=== PATIENT | female | born 2000 | race Caucasian/White ===

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

== ENCOUNTER 2022-07-03 14:25 | Emergency (ER) | payer BC, SELFPAY ==
[2022-07-03 14:45] VITALS: BP 123/73; PULSE 66; RESP 16; TEMP 36.3; O2SAT 99
[2022-07-03 14:47] VITALS: BP 123/73; PULSE 66; RESP 16; TEMP 36.3; O2SAT 99
--- NOTE | 2022-07-03 15:39 | ED.SKABFB ---
HPI - Skin/Abscess/Foreign Bdy General Chief complaint: Skin/Abscess/Foreign Body Stated complaint: lt foot/ glass injury Time Seen by Provider: 07/03/22 15:34 Source: patient Mode of arrival: ambulatory Limitations: no limitations History of Present Illness HPI narrative: Patient presents today complaining of a piece of glass in the bottom of her left foot. States she stepped on a globe of a string light yesterday. She feels a sharp pain when she walks. She is up-to-date on her tetanus vaccine. Related Data Home Medications Medication Instructions Recorded Confirmed dexmethylphenidate 20 mg 20 mg PO DAILY 07/03/22 07/03/22 capsule,extended release [id number] sertraline 100 mg tablet 100 mg PO DAILY 07/03/22 07/03/22 Allergies Allergy/AdvReac Type Severity Reaction Status Date / Time amoxicillin Allergy Mild Unknown Verified 07/03/22 14:46 clavulanic acid Allergy Mild Unknown Verified 07/03/22 14:46 sulfamethoxazole Allergy Unknown Unknown Verified 07/03/22 14:46 trimethoprim Allergy Unknown Unknown Verified 07/03/22 14:46 Review of Systems Review of Systems: CONSTITUTIONAL: Denies body aches, fever, chills, or sweats. EYES: Denies visual changes, redness, or discharge. ENT: Denies rhinorrhea, congestion, sore throat, or otalgia. CARDIOVASCULAR: Denies chest pain, palpitations, or edema. RESPIRATORY: Denies cough or dyspnea. GASTROINTESTINAL: Denies abdominal pain, nausea, vomiting, or diarrhea. GENITOURINARY: Denies dysuria or hematuria. SKIN: Denies rash, itching, or wounds.+ foreign body to left foot MUSCULOSKELETAL: Denies back pain, joint pain, or myalgia. NEUROLOGIC: Denies headache, numbness, tingling, or weakness. PSYCH: Denies depression or anxiety. PMFSH Comments At time of signature, I have reviewed and agree with nursing past medical, surgical, social and family history unless otherwise noted. Please see nursing chart for further information. There is no relevant family history pertinent to the presenting complaint Exam Narrative: GENERAL: Well-appearing, well-nourished, and in no acute distress. HEAD: Normocephalic, atraumatic. EYES: EOMI. No redness or drainage. Conjunctivae normal. ENT: Mucous membranes pink and moist. NECK: Normal AROM. CHEST: No respiratory distress. EXTREMITIES: Normal range of motion. No edema. SKIN: Warm, dry, no rash. Capillary refill normal. Normal skin turgor. Small foreign body palpated under the skin in the plantar aspect the lateral left foot. No surrounding erythema, edema, ecchymosis. No red streaking noted. NEURO: No focal deficits. Alert and oriented x3. Gait steady. PSYCH: Normal affect. No signs of depression or anxiety. Course Course Level of Care: Express Care Visit Vital Signs Vital signs: Vital Signs Temperature 97.3 F L 07/03/22 14:45 Pulse Rate 66 07/03/22 14:45 Respiratory Rate 16 07/03/22 14:45 Blood Pressure 123/73 07/03/22 14:45 Pulse Oximetry 99 07/03/22 14:45 Temperature 97.3 F L 07/03/22 14:47 Pulse Rate 66 07/03/22 14:47 Respiratory Rate 16 07/03/22 14:47 Blood Pressure 123/73 07/03/22 14:47 Pulse Oximetry 99 07/03/22 14:47 Reviewed. Pt has been instructed to follow up with her PCP regarding her elevated blood pressure today. Procedures Foreign Body Removal Foreign Body #1: Foreign Body Removal Date: 07/03/22 Foreign Body Removal Time: 16:07 Time Out Performed: no Site: left and foot Description of foreign body: other (Glass) Sedation/Analgesia: none Technique: removal with forceps Confirmed by:: direct visualization Complications: none Post-procedure exam: awake, alert Neurovascular: no change from pre-procedure Foreign Body Removal Narrative: Band-Aid applied. Patient tolerated procedure well. MDM - Skin/Abscess/Foreign Bdy MDM Narrative Medical decision making narrative: Soaking foot in peroxid
== END 2022-07-03 16:14 | disposition home or self-care (01) ==
PROVIDERS: Emergency Provider Nurse Practitioner; PCP Pediatrics
DX: S90.852A Superficial foreign body, left foot, initial encounter (principal); W25.XXXA Contact with sharp glass, initial encounter; F41.9 Anxiety disorder, unspecified; F90.9 Attention-deficit hyperactivity disorder, unspecified type
CPT/HCPCS: 99213; A9270; G0463

== ENCOUNTER 2023-01-06 17:14 | Emergency (ER) | payer BC, SELFPAY ==
--- NOTE | ~2023-01-06 | XR_ITS ---
EXAM: XR foot RT min 3V DATE: 01/06/2023 17:38 HISTORY: Pain great toe,tripped and jammed it into door . COMPARISON: None available. FINDINGS: Normal mineralization. Nondisplaced oblique fracture at the proximal and medial aspect of the right first phalanx. No lytic or blastic lesion. Joint spaces are maintained. No erosion or perio steal change. Soft tissues within normal limits. IMPRESSION: Nondisplaced oblique fracture of the proximal and medial aspect of the right first phalan x. Reviewed, dictated and finalized at location K. IMPRESSION: Nondisplaced oblique fracture of the proximal and medial aspect of the right first phalanx.
--- NOTE | 2023-01-06 17:18 | ED.LOWEXIN ---
HPI - Extremity Injury (Lower) General Chief Complaint: Extremity Injury, Lower Stated Complaint: INJURED TOE Time Seen by Provider: 01/06/23 17:26 Source: RN notes reviewed History of Present Illness HPI Narrative: Patient is a 22-year-old female who presents to the Urgent Care with complaints of right foot/great toe pain. Patient states that she tripped and bent her foot backwards with her right great toe going underneath the foot earlier today. Some parts of this dictation were generated by voice recognition software and may contain typographical and/or grammatical inaccuracies. Related Data Home Medications Medication Instructions Recorded Confirmed sertraline 100 mg tablet 100 mg PO DAILY 07/03/22 01/06/23 dexmethylphenidate 20 mg 20 mg PO DAILY 01/06/23 01/06/23 capsule,extended release -30 Allergies Allergy/AdvReac Type Severity Reaction Status Date / Time amoxicillin Allergy Mild Unknown Verified 01/06/23 17:17 clavulanic acid Allergy Mild Unknown Verified 01/06/23 17:17 sulfamethoxazole Allergy Unknown Unknown Verified 01/06/23 17:17 trimethoprim Allergy Unknown Unknown Verified 01/06/23 17:17 Review of Systems Review of Systems: CONSTITUTIONAL: Denies fever, chills, or sweats. EYES: Denies visual changes, redness, or discharge. ENT: Denies rhinorrhea, congestion, sore throat, or otalgia. CARDIOVASCULAR: Denies chest pain, palpitations, or edema. RESPIRATORY: Denies cough or dyspnea. GASTROINTESTINAL: Denies abdominal pain, nausea, vomiting, or diarrhea. GENITOURINARY: Denies dysuria or hematuria. SKIN: Denies rash or itching. MUSCULOSKELETAL: Reports of right foot/right great toe pain NEUROLOGIC: Denies headache, numbness, or weakness. All other systems reviewed are negative, except as documented in HPI. PMFSH Comments At the time of my signature, I reviewed and agree with the nursing past medical, surgical, social, and family history. There is no relevant family history pertinent to the patient complaint. Exam Narrative: GENERAL: This is a well-nourished, well-developed patient, in no apparent distress. HEAD: normocephalic, atraumatic. EYES: PERRL. Sclera clear/white. Vision is grossly intact. EARS: External ears normal NOSE: External nose normal with no obvious nasal discharge, nares without redness, no rhinorrhea. THROAT: Mucous membranes moist NECK: Neck supple SKIN: warm, intact with no suspicious lesions or rash, good texture and turgor. NEURO: awake, alert, and oriented to person, place and time. There were no obvious focal neurologic abnormalities. EXTREMITIES: Positive strong right pedal pulse with capillary refill less than 2 seconds. Range of motion right lower extremity within normal limits with exacerbated pain on flexion of the toes. Mild bruising noted to the dorsal aspect of the right great toe extending into the right 1st metatarsal. No obvious deformity. Course Course Level of Care: Express Care Visit Vital Signs Vital signs: Vital Signs Temperature 98.9 F 01/06/23 17:20 Pulse Rate 83 01/06/23 17:20 Respiratory Rate 18 01/06/23 17:20 Blood Pressure 127/79 01/06/23 17:20 Pulse Oximetry 100 01/06/23 17:20 Oxygen Delivery Room Air 01/06/23 17:20 Temperature 98.9 F 01/06/23 17:20 Pulse Rate 83 01/06/23 17:20 Respiratory Rate 18 01/06/23 17:20 Blood Pressure 127/79 01/06/23 17:20 Pulse Oximetry 100 01/06/23 17:20 Oxygen Delivery Room Air 01/06/23 17:20 Reviewed MDM - Extremity Injury (Lower) MDM Narrative Medical decision making narrative: Reviewed x-ray results with the patient. She is aware that she has a right great toe fracture. Advised patient a postop shoe as directed. Avoid any strenuous activity or long periods on your feet until follow-up with the orthopedic for further evaluation and instruction. Keep the foot elevated with the use of ice/Tylenol/ibuprofen as needed. Follow-up with the ortho
[2023-01-06 17:20] VITALS: BP 127/79; PULSE 83; RESP 18; TEMP 37.2; O2SAT 100
== END 2023-01-06 18:02 | disposition home or self-care (01) ==
PROVIDERS: Emergency Provider Nurse Practitioner Family; PCP Pediatrics
DX: S92.414A Nondisplaced fracture of proximal phalanx of right great toe, initial encounter for closed fracture (principal); X50.9XXA Other and unspecified overexertion or strenuous movements or postures, initial encounter
CPT/HCPCS: 73630; 99214; G0463

== ENCOUNTER 2025-03-07 17:14 | Emergency (ER) | payer BC, SELFPAY ==
[2025-03-07 17:22] VITALS: BP 131/83; PULSE 86; RESP 18; TEMP 37.3; O2SAT 97
--- NOTE | 2025-03-07 17:24 | ED_ITS ---
HPI - General Adult General Chief complaint: Upper Respiratory Infection Stated complaint: feeling sick Source: patient Mode of arrival: ambulatory Limitations: no limitations History of Present Illness HPI narrative: Pt is a 24 y/o female presenting with c/o cough, headache, congestion, rhinorrhea,sore throat. Sx began 2-3 days ago. NO known exposure to COVID,FLU,STREP,PNA. States she was evaluated at 1 month ago after presenting with similar sx, given abx which she completed with resolution of sx. No constitutional sx. NO additional complaints. Related Data Home Medications ?Medication ?Instructions ?Recorded ?Confirmed ?Last Taken ?Type dexmethylphenidate 20 mg 20 mg PO DAILY 01/06/23 08/0 07/30 Unknown History capsule,extended release [id number] Allergies Allergy/AdvReac Type Severity Reaction Status Date / Time amoxicillin Allergy Mild Unknown Verified 01/06/23 17:17 clavulanic acid Allergy Mild Unknown Verified 01/06/23 17:17 sulfamethoxazole Allergy Unknown Unknown Verified 01/06/23 17:17 trimethoprim Allergy Unknown Unknown Verified 01/06/23 17:17 Review of Systems Review of Systems: CONSTITUTIONAL: Denies body aches, fever, chills, or sweats. EYES: Denies visual changes, redness, or discharge. ENT: Reports rhinorrhea, congestion, sore throat, denies otalgia. CARDIOVASCULAR: Denies chest pain, palpitations, or edema. RESPIRATORY: reports cough denies dyspnea. GASTROINTESTINAL: Denies abdominal pain, nausea, vomiting, or diarrhea. GENITOURINARY: Denies dysuria or hematuria. SKIN: Denies rash, itching, or wounds. MUSCULOSKELETAL: Denies back pain, joint pain, or myalgia. NEUROLOGIC: reports headache, denies numbness, tingling, or weakness. PSYCH: Denies depression or anxiety. All systems reviewed & are unremarkable except as noted in HPI and below Exam Narrative: GENERAL: Well-appearing, well-nourished, and in no acute distress. HEAD: Normocephalic, atraumatic. EYES: EOMI. No redness or drainage. Conjunctivae normal. ENT: Mucous membranes pink and moist. Nares clear. No rhinorrhea. TMs normal bilaterally. tonsils are 1+ bilaterally without exudate, erythema, edema, lesions. There is mild posterior pharyngeal erythema. Scant amount of clear, postnasal drainage. Uvula midline. Sinuses are nontender to palpation. NECK: Normal AROM. Supple. No lymphadenopathy. CHEST: No respiratory distress. Clear to auscultation. HEART: Regular rate and rhythm. No murmur appreciated. Normal peripheral pulses. ABDOMEN: Soft, nontender, nondistended, normal active bowel sounds. MUSCULOSKELETAL: No bony tenderness. EXTREMITIES: Normal range of motion. No edema. SKIN: Warm, dry, no rash. Capillary refill normal. Normal skin turgor. NEURO: No focal deficits. Alert and oriented x3. Gait steady. PSYCH: Normal affect. No signs of depression or anxiety. Course Course Emergency Course: Discussed elevated blood pressure readings with patient and advised daily BP monitoring and f/u with PCP if persisting. Level of Care: Express Care Visit Vital Signs Vital signs: Vital Signs Temperature 99.1 F 03/07/25 17:22 Pulse Rate 86 03/07/25 17:22 Respiratory Rate 18 03/07/25 17:22 Blood Pressure 131/83 03/07/25 17:22 Pulse Oximetry 97 03/07/25 17:22 Temperature 99.1 F 03/07/25 17:22 Pulse Rate 86 03/07/25 17:22 Respiratory Rate 18 03/07/25 17:22 Blood Pressure 131/83 03/07/25 17:22 Pulse Oximetry 97 03/07/25 17:22 Medical Decision Making Vital Signs Vital Signs: Vital Signs Temperature 99.1 F 03/07/25 17:22 Pulse Rate 86 03/07/25 17:22 Respiratory Rate 18 03/07/25 17:22 Blood Pressure 131/83 03/07/25 17:22 Pulse Oximetry 97 03/07/25 17:22 Temperature 99.1 F 03/07/25 17:22 Pulse Rate 86 03/07/25 17:22 Respiratory Rate 18 03/07/25 17:22 Blood Pressure 131/83 03/07/25 17:22 Pulse Oximetry 97 03/07/25 17:22 Lab Data Lab results reviewed: Yes I reviewed the patient's lab results. Labs: Lab Results 03/07/25 Range/Units 17:48 POC Influenza A Ag Negative (Negative) POC Influenza B Ag Negative (Negative) POC SARS CoV-2 Ag Negative (Negative) POC Grp A Strep Screen Negative (Negative) Discharge Plan Discharge Clinical Impression: Elevated blood pressure reading in office without diagnosis of hypertension Upper respiratory infection Qualifiers: URI type: acute nasopharyngitis (common cold) Qualified Code(s): J00 - Acute nasopharyngitis [common cold] Patient Disposition: Home Condition: Stable Instructions: Antibiotic Form, Cold Symptoms (ED) Additional Instructions: Go straight to ER should your symptoms become worse or should any new symptoms develop Patient Language: Indonesian Prescriptions: No Action dexmethylphenidate 20 mg capsule,ER biphasic 50-50 20 mg PO DAILY Follow-up/Referrals: UNKNOWN,DOCTOR [Primary Care Provider] - 03/08/25 Time of Disposition: 17:48
[2025-03-07 17:51] LABS: EDCOVIDSCREEN Negative (Negative); EDINFLUASCREEN Negative (Negative); EDINFLUBSCREEN Negative (Negative); EDSTREPNEGPOS1 Negative (Negative)
== END 2025-03-07 17:53 | disposition home or self-care (01) ==
PROVIDERS: Emergency Provider Registered Nurse
DX: R03.0 Elevated blood-pressure reading, without diagnosis of hypertension (principal); J00 Acute nasopharyngitis [common cold]; Z20.822 Contact with and (suspected) exposure to COVID-19
CPT/HCPCS: 87081; 87426; 87804; 87880; 99213; G0463